=== PATIENT | male | born 1985 | race African-American/Black ===

== ENCOUNTER 2017-02-18 00:16 | Emergency (ER) | payer SELFPAY ==
[~2017-02-18] VITALS: Ht 177.8 cm; Wt 77.0 kg
[2017-02-18] MEDS ORDERED: ARIP2TAB2 PO (00:54)
[2017-02-18 01:34] LABS: ASPARTATE AMINO TRANSFERASE 119 U/L (15-37); BLOOD UREA NITROGEN 9 mg/dL (7-18)
[2017-02-18 01:50] LABS: ACETAMINOPHEN < 2 mcg/mL (10-30)
[2017-02-18 01:59] LABS: DIFF TOTAL CELLS COUNTED 100 CELL DIFF; HEMATOCRIT 29.9 % (39.2-51.8); HEMOGLOBIN 9.3 g/dL (13.7-18.0); WHITE BLOOD COUNT 13.2 x10^3/uL (3.4-10)
[2017-02-18 02:02] LABS: VERIFY COUNTS? YES
[2017-02-18 02:04] LABS: ANISOCYTOSIS 2+; HYPOCHROMIA 1+; POLYCHROMASIA 1+
[2017-02-18 02:05] LABS: OVALOCYTES 1+; TARGET CELLS 2+
[2017-02-18 02:08] LABS: POIKILOCYTOSIS 1+
[2017-02-18 02:10] LABS: MICROCYTOSIS 1+
[2017-02-18] MEDS ORDERED: LORazepam 2 MG/ML, 1ML ONE (02:56)
[2017-02-18 04:29] LABS: DAU SCREEN DISCLAIMER
[2017-02-18 05:58] VITALS: BP 114/75
== END 2017-02-18 07:47 | disposition home or self-care (01) ==
LOC: ED 06:55
DX: F32.0 Major depressive disorder, single episode, mild (principal); D50.9 Iron deficiency anemia, unspecified; R74.8 Abnormal levels of other serum enzymes
CPT/HCPCS: 36415; 80053; 80307; 80329; 81003; 84443; 85025; 93005; 99285; G0479; G0480

== ENCOUNTER 2017-02-22 22:15 | Emergency (ER) | payer OTHER ==
[~2017-02-22] VITALS: Ht 177.8 cm; Wt 88.0 kg
[~2017-02-22 22:15] MED LIST: ARIP2TAB2 PO
[2017-02-22] MEDS ORDERED: IBUPROFEN 200 MG TABLET ONE (22:46)
[2017-02-22] MEDS ORDERED: IBUPROFEN 200 MG TABLET PO ONE (23:00)
[2017-02-23 00:50] VITALS: BP 110/79
== END 2017-02-23 01:05 | disposition home or self-care (01) ==
LOC: ED 23:53
DX: S93.402A Sprain of unspecified ligament of left ankle, initial encounter (principal); S93.401A Sprain of unspecified ligament of right ankle, initial encounter; J45.909 Unspecified asthma, uncomplicated; X50.1XXA Overexertion from prolonged static or awkward postures, initial encounter; Y93.02 Activity, running; Y92.410 Unspecified street and highway as the place of occurrence of the external cause; Y99.8 Other external cause status
CPT/HCPCS: 99284

== ENCOUNTER 2017-03-16 08:18 | Emergency (ER) | payer MEDICAID, OTHER ==
[~2017-03-16] VITALS: Ht 177.8 cm; Wt 77.7 kg
[2017-03-16 09:07] LABS: MEAN CORPUSCULAR HEMOGLOBIN 21.4 pg (27.5-34.5); MEAN CORPUSCULAR VOLUME 66.9 fL (81-97); MEAN PLATELET VOLUME 7.4 fL (7.4-10.4); PLATELET COUNT 635 x10^3/uL (130-400); RED BLOOD COUNT 5.03 x10^6/uL (4.38-5.82)
[2017-03-16 09:12] LABS: AMPHETAMINE SCREEN, URINE Negative (Negative); BARBITURATE SCREEN, URINE Negative (Negative); BENZODIAZEPINE SCREEN, URINE Negative (Negative); CANNABINOID SCREEN, URINE Positive (Negative); COCAINE SCREEN, URINE Negative (Negative); METHADONE SCREEN, URINE Negative (Negative); OPIATE SCREEN, URINE Negative (Negative)
[2017-03-16 09:14] LABS: ALANINE AMINOTRANSFERASE 30 U/L (12-78); ANION GAP 7 mmol/L (5-15); CALCIUM 8.6 mg/dL (8.5-10.1); CHLORIDE 103 mmol/L (98-107); CREATININE 0.89 mg/dL (0.7-1.3)
[2017-03-16 09:16] LABS: ACETAMINOPHEN < 2 mcg/mL (10-30); ALKALINE PHOSPHATASE 243 U/L (45-117); BILIRUBIN,TOTAL 0.3 mg/dL (0.2-1.0); SALICYLATE LEVEL < 1.7 mg/dL (2.8-20.0); TOTAL PROTEIN 9.2 g/dL (6.4-8.2)
[2017-03-16] MEDS ORDERED: QUET25TA5 PO (09:34)
[2017-03-16 09:42] LABS: MD MORPH REVIEW ONLY
[2017-03-16 09:43] LABS: ANISOCYTOSIS 2+; BASOPHILS # (AUTO) 0.09 x10^3/uL (0-0.1); BASOPHILS % (AUTO) 1 % (0-1); EOSINOPHILS # (AUTO) 0.43 x10^3/uL (0-0.4); EOSINOPHILS % (AUTO) 3 % (1-7); LYMPHOCYTES # (AUTO) 3.01 x10^3/uL (1-3.4); LYMPHOCYTES % (AUTO) 23 % (22-44); MONOCYTES # (AUTO) 1.18 x10^3/uL (0.2-0.8); MONOCYTES % (AUTO) 9 % (2-9); NEUTROPHILS # (AUTO) 8.31 x10^3/uL (1.8-6.8); NEUTROPHILS % (AUTO) 64 % (42-75)
[2017-03-16 09:45] LABS: HYPOCHROMIA 2+; OVALOCYTES 1+
[2017-03-16 09:46] LABS: <PLATELET ESTIMATE> INCREASED; <PLT MORPHOLOGY> NORMAL PLT MORPH; SCHISTOCYTES 1+
[2017-03-16 09:47] LABS: MICROCYTOSIS 2+; TARGET CELLS 2+
[2017-03-16 12:58] VITALS: BP 118/72
== END 2017-03-16 13:00 | disposition home or self-care (01) ==
LOC: ED 11:48
DX: F32.9 Major depressive disorder, single episode, unspecified (principal); Z72.9 Problem related to lifestyle, unspecified; Z59.0 Homelessness; F17.200 Nicotine dependence, unspecified, uncomplicated; J45.909 Unspecified asthma, uncomplicated; F20.9 Schizophrenia, unspecified
CPT/HCPCS: 36415; 80053; 80307; 80329; 85025; 99284; G0479; G0480

== ENCOUNTER 2017-03-19 18:24 | Observation (INO) | payer MEDICAID ==
[~2017-03-19] VITALS: Ht 175.3 cm; Wt 74.0 kg
[~2017-03-19 18:24] MED LIST changes: +QUET25TA5 PO
[2017-03-19 19:32] LABS: BASOPHILS # (AUTO) 0.14 x10^3/uL (0-0.1); BASOPHILS % (AUTO) 1 % (0-1); EOSINOPHILS # (AUTO) 0.75 x10^3/uL (0-0.4); EOSINOPHILS % (AUTO) 7 % (1-7); LYMPHOCYTES # (AUTO) 1.65 x10^3/uL (1-3.4); LYMPHOCYTES % (AUTO) 16 % (22-44); MD MORPH REVIEW ONLY; MEAN CORPUSCULAR HEMOGLOBIN 21.7 pg (27.5-34.5); MEAN CORPUSCULAR HGB CONC 31.8 g/dL (33.2-36.2); MEAN CORPUSCULAR VOLUME 68.2 fL (81-97); MONOCYTES # (AUTO) 1.39 x10^3/uL (0.2-0.8); MONOCYTES % (AUTO) 14 % (2-9); NEUTROPHILS # (AUTO) 6.36 x10^3/uL (1.8-6.8); NEUTROPHILS % (AUTO) 62 % (42-75); PLATELET COUNT 620 x10^3/uL (130-400); RED BLOOD COUNT 4.94 x10^6/uL (4.38-5.82); RED CELL DISTRIBUTION WIDTH 32.5 % (9.4-14.8)
[2017-03-19 19:38] LABS: MICROSCOPIC AUTO
[2017-03-19 19:39] LABS: ALANINE AMINOTRANSFERASE 73 U/L (12-78); ALBUMIN 2.7 g/dL (3.4-5.0); ANION GAP 5 mmol/L (5-15); CALCIUM 8.1 mg/dL (8.5-10.1); CHLORIDE 108 mmol/L (98-107); CREATININE 0.69 mg/dL (0.7-1.3)
[2017-03-19 19:41] LABS: SALICYLATE LEVEL < 1.7 mg/dL (2.8-20.0)
[2017-03-19 19:44] LABS: CULTURE INDICATED? NO
[2017-03-19 19:44] LABS: ALKALINE PHOSPHATASE 491 U/L (45-117); BILIRUBIN,TOTAL 0.4 mg/dL (0.2-1.0); TOTAL PROTEIN 8.8 g/dL (6.4-8.2)
[2017-03-19 19:45] LABS: ACETAMINOPHEN < 2 mcg/mL (10-30)
[2017-03-19 19:47] LABS: AMPHETAMINE SCREEN, URINE Negative (Negative); BARBITURATE SCREEN, URINE Negative (Negative); BENZODIAZEPINE SCREEN, URINE Negative (Negative); CANNABINOID SCREEN, URINE Positive (Negative); COCAINE SCREEN, URINE Negative (Negative); METHADONE SCREEN, URINE Negative (Negative); OPIATE SCREEN, URINE Negative (Negative)
[2017-03-19 19:53] LABS: ANISOCYTOSIS 2+; MICROCYTOSIS 1+; TARGET CELLS 2+
[2017-03-19 19:54] LABS: SCHISTOCYTES 1+
[2017-03-19 19:55] LABS: TEAR DROPS 1+
[2017-03-19 19:56] LABS: HYPOCHROMIA 1+
[2017-03-19 19:58] LABS: POLYCHROMASIA 1+
[2017-03-19 19:59] LABS: <PLATELET ESTIMATE> INCREASED
[2017-03-19 20:00] LABS: <PLT MORPHOLOGY> NORMAL PLT MORPH
[2017-03-19] MEDS ORDERED: ACETAMINOPHEN 325 MG TABLET PO PRN (22:30)
[2017-03-19] MEDS ORDERED: ONDANSETRON ODT 4 MG PO PRN (22:30)
[2017-03-19 23:48] VITALS: BP 104/67
[2017-03-20 08:30] VITALS: BP 95/64
[2017-03-20] MEDS ORDERED: QUETIAPINE 25MG TABLET PO SCH (09:00)
[2017-03-20] MEDS ORDERED: ARIPIPRAZOLE 2 MG TABLET PO SCH (09:00)
== END 2017-03-20 14:43 ==
LOC: ED 20:27 → EDIP 21:00 → INTOOBSV 21:00 → 2N 23:22
PROVIDERS: ADMIT Internal Medicine; ATTEND Internal Medicine
DX: R45.851 Suicidal ideations (principal); F25.9 Schizoaffective disorder, unspecified; F32.9 Major depressive disorder, single episode, unspecified; J45.909 Unspecified asthma, uncomplicated; F17.210 Nicotine dependence, cigarettes, uncomplicated
CPT/HCPCS: 36415; 80053; 80307; 80329; 81001; 85025; 99285; G0378; G0480